=== PATIENT | male | born 1970 | race Caucasian/White ===

== ENCOUNTER 2019-11-23 20:05 | Emergency (ER) | payer OTHER, SELFPAY ==
[2019-11-23 20:08] VITALS: PULSE 83; RESP 16; TEMP 36.2; O2SAT 98; BMI 23.5
--- NOTE | 2019-11-23 20:13 | DI.RAD.S_ITS ---
PROCEDURE: XR FINGER LT MIN 2V INDICATIONS: swollen and pain TECHNIQUE: AP hand, 2 views of the 4th finger(s) acquired. COMPARISON: None. FINDINGS: Bones: There is a mildly displaced oblique fracture involving the proximal phalanx of the 4th finger. Mild intra-articular involvement can be seen. Soft tissues: No suspicious soft tissue calcifications. IMPRESSION: Fracture involving the proximal phalanx of the 4th finger, with mild intra-articular involvement. Dictated by: Julio Martin M.D. on 11/23/2019 at 20:44 Approved by: Julio Martin M.D. on 11/23/2019 at 20:45
--- NOTE | 2019-11-23 21:00 | ED.UPPEXIN ---
HPI - Extremity Injury (Upper) <RITCHIE Zendejas - Last Filed: 11/23/19 21:37> General Chief Complaint: Extremity Injury, Upper Stated Complaint: lt 4th finger injury Time Seen by Provider: 11/23/19 20:49 Source: patient Mode of arrival: Ambulatory Limitations: no limitations History of Present Illness HPI narrative: This is a 49-year-old male, nonsmoker, who presents to ED with left 4th proximal finger discomfort that he injured during work. 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 Patient reports pain is 8/10 and painful with movement such as flexing and extending of affected finger. Right dominant hand. Patient reports difficult to bending PIP. Patient reports intact sensation distal and proximal to the injury site. Patient denies any open skin from injury. Related Data Allergies Allergy/AdvReac Type Severity Reaction Status Date / Time aspirin Allergy Severe Hives Verified 11/23/19 20:12 Review of Systems <RITCHIE Zendejas - Last Filed: 11/23/19 21:37> Review of Systems Narrative: General: Denies fever, chills, fatigue, malaise, sweats. Respiratory: Denies dyspnea, cough, wheezing, hemoptysis, sputum. Cardiovascular: Denies chest pain, palpitations, orthopnea, edema. Musculoskeletal: See HPI Skin: Denies rash, skin lesions, or other. Neurologic: Denies weakness, headache, numbness, change in speech, confusion, seizures, incoordination. Psychiatric: No concerning psychosocial issues. Patient History <RITCHIE Zendejas - Last Filed: 11/23/19 21:37> Medical History No significant past medical history (Acute) Surgical History No pertinent past surgical history (Acute) Social History Smoking Status: Never smoker Smoking Status: Never smoker alcohol intake frequency: holidays/special occasions only Substance Use Type: does not use Exam <RITCHIE Zendejas - Last Filed: 11/23/19 21:37> Narrative Exam Narrative: General appearance: well developed, well nourished, in no acute distress. Head: normocephalic, atraumatic, no scalp lesions, non-tender. ENT: Hearing grossly intact. Nose without bleeding, purulent discharge, septal hematoma or deviation. Mucous membrane moist, no mucosal lesion. Throat without erythema, tonsillar hypertrophy or exudate. Uvula in midline, airway patent. Neck/Thyroid: neck supple, full range of motion, no visible masses or meningeal signs. No JVD, non-tender without lymphadenopathy. Skin: no suspicious rashes, lesions over visible areas. Warm and dry and appropriate color for ethnicity. Heart: no clubbing, no cyanosis, no edema. Lungs: Breathing even and unlabored. No stridor. No accessory muscles used. Able to speak in full sentences. Chest: normal shape and expansion. Abdomen: non-obese, non-distended. Neurologic: alert and oriented. 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 Psych: good eye contact, normal affect. Initial Vital Signs Initial Vital Signs: Vital Signs Temperature 97.1 F L 11/23/19 20:08 Pulse Rate 83 11/23/19 20:08 Respiratory Rate 16 11/23/19 20:08 Pulse Oximetry 98 11/23/19 20:08 Extrem Left upper extremity: hand Details: abnormal to inspection, normal capillary refill, neuromotor exam abnormal, neurosensory exam normal, tenderness, vascular exam Details: radial pulse present, abnormal ROM of finger Details: pain with active ROM, pain with passive ROM and unable to flex or extend (except very mild, c/o pain) Location: of the 4th digit, swelling Location: of the 4th digit Location: at the proximal phalanx and at the PIP joint and ecchymosis Location: of the 4th digit Location: at the proximal phalanx and on the dorsal aspect; no abrasions and no lacerations <Jaspal Dangelo MD - Last Filed: 11/24/19 06:51> Initial Vital Signs Initial Vital Signs: Vital Signs Temperature 97.1 F L 11/23/19 20:08 Pulse Rate 83 11/23/19 20:08 Respiratory Rate 16 11/23/19 20:08 Pulse Oximetry 98 11/23/19 20:08 Scores <Sagar BarahonaRITCHIE armenta - Last Filed: 11/23/19 21:37> GCS Denisa coma scale eye opening: Spontaneous Denisa coma scale verbal response: Orientated [place] coma scale motor response: Obey commands [place] coma scale total score: 15 Course <Sagar BarahonaRITCHIE armenta - Last Filed: 11/23/19 21:37> Orders Ordered: Discontinued Medications Acetaminophen (Tylenol) 975 mg PO NOW ONE Stop: 11/23/19 21:02 Last Admin: 11/23/19 21:23 Dose: 975 mg [facility] V[facility] Signs Vital signs: Vital Signs - 8 hr 11/23/19 20:08 Temperature 97.1 F L Pulse Rate 83 Respiratory Rate 16 Pulse Oximetry 98 <Jaspal Dangelo MD - Last Filed: 11/24/19 06:51> Orders Ordered: Discontinued Medications Acetaminophen (Tylenol) 975 mg PO NOW ONE Stop: 11/23/19 21:02 Last Admin: 11/23/19 21:23 Dose: 975 mg Documented by: NITISH Vital Signs Vital signs: Vital Signs - 8 hr 11/23/19 20:08 Temperature 97.1 F L Pulse Rate 83 Respiratory Rate 16 Pulse Oximetry 98 MDM - Extremity Injury (Upper) <Sagar BarahonaRITCHIE armenta - Last Filed: 11/23/19 21:37> Differential Diagnosis Differential diagnosis: Likely finger sprain and other (Finger fracture) Medical Records Attestation: I reviewed the patient's medical records. Imaging Data XR-Finger LT: Radiologist's Impression: [address] [address] XRay Report Signed Patient: Bernadette Toribio PMR#: [id number] : 1970Acct:[id number] Age/Sex: 49 / MDate of Service: 11/23/19 Loc: ED Accession Number: [id number] Procedure: XR finger LT min 2V Ordering Provider: Bj Curtis D.O. PROCEDURE: XR FINGER LT MIN 2V INDICATIONS: swollen and pain TECHNIQUE: AP hand, 2 views of the 4th finger(s) acquired. COMPARISON: None. FINDINGS: Bones: There is a mildly displaced oblique fracture involving the proximal phalanx of the 4th finger. Mild intra-articular involvement can be seen. Soft tissues: No suspicious soft tissue calcifications. IMPRESSION: Fracture involving the proximal phalanx of the 4th finger, with mild intra-articular involvement. Dictated by: Julio Martin M.D. on 11/23/2019 at 20:44 Approved by: Julio Martin M.D. on 11/23/2019 at 20:45 MDM Narrative Medical decision making narrative: This is 49-year-old male right dominant hand presents to ED with maximum pain on the left 4th proximal phalanx pain with limited range of motion on the 4th finger with flexion and extension against resistance. There is moderate swelling and mild ecchymosis on affected site. Finger x-ray shows fracture involving the proximal phalanx of the 4th finger with mild intra-articular involvement. Affected finger was splinted with orthoglass material and advised RICE therapy and patient verbalized understanding. Patient was medicated with Tylenol due to history of aspirin and patient is hesitant to take NSAIDS. L&I document completed and work off note provided. Discharge Plan Departure Patient Disposition: Home Clinical Impression: Closed fracture of proximal phalanx of finger of left hand Discharge Date/Time: 11/23/19 21:33 Instructions: DI for Finger Fracture Activity Restrictions/Additional Instructions: You have been diagnosed with [closed mildly displaced oblique fracture involving the proximal balance of the 4th finger in left hand mildly involving the joint]. What to do: *Take your medications as directed. Please take [id number] Tylenol 650-1000 mg up to 4 times a day as needed. You can take [id number] ibuprofen if you elect to up to 400 mg to 600 mg 3 times a day with food. *Follow up with your primary care provider in 2-3 days, call for an appointment. I have included [facility] clinic information for PCP for Dr. De Oliveira. Let them know you were seen in the ED and that we asked you to be seen in follow up. *Return to ED if you have any new, worsening, or concerning symptoms, such as [severe pain, tingling/numbness/weakness to affected finger or hand, chest pain, breathing difficulty, unable to tolerate fluids or any acute concerns]. Referrals: [facility] [Provider Group] [facility] [Provider Group] Stand Alone Forms: Work Release Note
[2019-11-23] MEDS: ACETAMINOPHEN 325 MG TABLET 975 MG PO (21:23)
== END 2019-11-23 21:33 | disposition home or self-care (01) ==
PROVIDERS: Emergency Provider Nurse Practitioner Family
DX: S62.615A Displaced fracture of proximal phalanx of left ring finger, initial encounter for closed fracture (principal); X50.0XXA Overexertion from strenuous movement or load, initial encounter; Y99.0 Civilian activity done for income or pay
CPT/HCPCS: 73140; 99283

== ENCOUNTER → 2020-08-05 07:55 | Outpatient (CLI) | payer BC, SELFPAY ==
[2020-08-05 09:02] LABS: Add Manual Diff / Slide Review NO; Basophils Absolute Auto 0 /uL (0-100); Basophils Percent Auto 0.8 % (0-2); Eosinophils Absolute Auto 200 /uL (0-450); Eosinophils Percent Auto 3.5 % (2-4); Hematocrit 41.1 % (41-53); Lymphocytes Absolute Auto 2300 /uL (1100-4500); Lymphocytes Percent Auto 49.7 % (25-40); Mean Corpuscular HGB Conc 34.1 % (30-36); Mean Corpuscular Hemoglobin 29.7 PG (26-34); Mean Corpuscular Volume 87.1 fL (80-100); Monocytes Absolute Auto 300 /uL (0-900); Monocytes Percent Auto 7.1 % (3-14); Neutrophils Absolute Auto 1800 /uL (1500-7000); Neutrophils Percent Auto 38.9 % (50-75); Platelet Count 191 X10^3/uL (150-400); Red Blood Cell Count 4.72 X10^6/uL (4.5-5.9); White Blood Cell Count 4.7 X10^3/uL (4.5-11.0)
[2020-08-05 09:11] LABS: Alanine Aminotransferase 16 IU/L (<50); Albumin 4.1 g/dL (3.5-5.0); Albumin Globulin Ratio 1.4 (1.0-2.8); Alkaline Phosphatase 61 U/L (38-126); Aspartate Aminotransferase 27 IU/L (17-59); BUN Creatinine Ratio 15.5 (6-22); Bilirubin Total 0.9 mg/dL (0.2-1.3); Blood Urea Nitrogen 11 mg/dL (9-20); Carbon Dioxide 31 mmol/L (22-32); Chloride 103 mmol/L (98-107); Cholesterol 133 mg/dL (140-199); Estimated Glomerular Filt Rate > 60.0 mL/min (>60); Globulin 2.9 g/dL (1.7-4.1); Glucose 87 mg/dL (70-100); HDL Cholesterol 52 mg/dL (40-60); HEMOLYSIS < 15 (0-50); LDL Cholesterol Calculated 71 mg/dL (<100); Potassium 4.4 mmol/L (3.4-5.1); Sodium 138 mmol/L (137-145); Triglycerides 51 mg/dL (35-150)
[2020-08-05 09:12] LABS: Hemoglobin A1C% w Est Avg Glu 5.3 % (4.0-6.0)
== END ==
PROVIDERS: PCP Family Medicine; Referring Provider Family Medicine; Visit Provider Family Medicine
DX: Z00.00 Encounter for general adult medical examination without abnormal findings (principal); Z80.9 Family history of malignant neoplasm, unspecified
CPT/HCPCS: 36415; 80053; 80061; 83036; 85025

== ENCOUNTER 2020-09-30 13:36 | Emergency (ER) | payer BC, SELFPAY ==
[2020-09-30] VITALS (8 sets, daily range): BP systolic 111–124; BP diastolic 72–78; PULSE 63–87; RESP 15–26; TEMP 36.4; O2SAT 95–99; BMI 25.0
--- NOTE | 2020-09-30 14:33 | ED_ITS ---
HPI - Arrhythmia/Palpitations <KARLIE Murray-BC - Last Filed: 09/30/20 19:46> General Chief Complaint: Arrhythmia/Palpitations Stated Complaint: elevated heart rate Time Seen by Provider: 09/30/20 13:57 Source: patient Mode of arrival: Ambulatory Limitations: no limitations History of Present Illness HPI narrative: The patient is a 50-year-old male nonsmoker who denies pertinent medical history presents with a chief complaint of a fast heart for the past 2 days. He states that his heart rate will jump up to 120 and then decreased very quickly, that there is no pattern to this. He states that he knows this because of his what, he does not take his pulse. He denies any chest pain shortness of breath lightheadedness or dizziness. He does note that this started after drinking a lot of coffee yesterday. He states that he ended a water fast for 5 days or he limits his food intake and that ended yesterday. He wonders if his electrolytes might be off related to this. The patient denies any chest pain shortness of breath, denies any lightheadedness or dizziness, any nausea vomiting or abdominal pain. He states that his pulse rate has gone above 100, which is not normal for him. He does note that he has done this water fasting diet several times with no complications. Related Data Home Medications Medication Instructions Recorded Confirmed No Known Home Medications 08/04/20 09/29/20 Allergies Allergy/AdvReac Type Severity Reaction Status Date / Time aspirin Allergy Severe Hives Verified 09/30/20 13:40 Review of Systems <ZACHARY Murray - Last Filed: 09/30/20 19:46> Review of Systems Narrative: GENERAL: Denies chills, fatigue, malaise, fever, sweats. HEENT: Denies sinus pain, ear pain, sore throat, difficulty swallowing, dizziness. RESPIRATORY: Denies dyspnea, cough, wheezing, hemoptysis, sputum. CARDIOVASCULAR: See HPI GASTROINTESTINAL: Denies nausea, vomiting, abdominal pain, diarrhea, constipation, melena. : Denies dysuria, frequency, incontinence, hematuria, urinary retention. MUSCULOSKELETAL: denies weakness, joint pain, or bony pain SKIN: Denies rash, skin lesions, or other NEUROLOGIC: Denies weakness, headache, numbness, change in speech, confusion, seizures, incoordination. PSYCHIATRIC: No concerning psychosocial issues. 12 point review of systems is negative except for those stated above Patient History <SHALOM Murray - Last Filed: 09/30/20 19:46> Medical History Family history of cancer No significant past medical history Preventative health care Surgical History No pertinent past surgical history Family History Father Cancer Social History Smoking Status: Former smoker Tobacco: How many years used: 10 quit status: has quit before alcohol intake: current (~2 drinks per week ) substance use type: does not use Smoking Status: Former smoker alcohol intake frequency: holidays/special occasions only Substance Use Type: does not use Exam <SHALOM Murray - Last Filed: 09/30/20 19:46> Narrative Exam Narrative: GENERAL: This is a well-nourished, well-developed patient, no acute distress HEAD: Atraumatic. Normocephalic. No temporal or scalp tenderness. EYES: Pupils equal round and reactive. Extraocular motions intact. No scleral icterus. No injection or drainage. ENT: Nose without bleeding, purulent drainage or septal hematoma. Wearing a mask. Airway patent. NECK: Trachea midline. No JVD or lymphadenopathy. Supple, nontender, no meningeal signs. CARDIOVASCULAR: Regular rate and rhythm RESPIRATORY: Clear to auscultation. Breath sounds equal bilaterally. No wheezes, rales, or rhonchi. No cough. No increased respiratory effort. Accessory muscle use. GASTROINTESTINAL: Abdomen soft, non-tender, nondistended. No hepato- splenomegaly, or palpable masses. No guarding. EXTREMITIES: No clubbing, cyanosis, or edema. No joint tenderness, effusion, or edema noted. BACK: Nontender without deformity or crepitance. No flank tenderness. NEURO: AOx3. SKIN: No rash or erythema on visible skin Initial Vital Signs Initial Vital Signs: Vital Signs Temperature 97.6 F 09/30/20 13:41 Pulse Rate 87 12/12/20 13:41 Respiratory Rate 18 09/30/20 13:41 Blood Pressure 116/78 09/30/20 13:41 Pulse Oximetry 99 09/30/20 13:41 <Lolly Hill MD - Last Filed: 10/01/20 07:37> Initial Vital Signs Initial Vital Signs: Vital Signs Temperature 97.6 F 09/30/20 13:41 Pulse Rate 87 09/30/20 13:41 Respiratory Rate 18 09/30/20 13:41 Blood Pressure 116/78 09/30/20 13:41 Pulse Oximetry 99 09/30/20 13:41 Scores <SHALOM Murray - Last Filed: 09/30/20 19:46> GCS Denisa coma scale eye opening: Spontaneous Denisa coma scale verbal response: Orientated Denisa coma scale motor response: Obey commands Denisa coma scale total score: 15 Course <SHALOM Murray - Last Filed: 09/30/20 19:46> Orders Ordered: ED Orders 09/30/20 13:50 Complete Blood Count AUTO DIFF Stat Comprehensive Metabolic Panel Stat Magnesium Stat Thyroid Stimulating Hormone Stat Troponin & CK Cardiac Panel Stat 09/30/20 13:57 EKG-12 Lead Stat Vital Signs Vital signs: Vital Signs - 8 hr 09/30/20 13:41 09/30/20 13:47 09/30/20 13:48 Temperature 97.6 F Pulse Rate 87 87 84 Respiratory Rate 18 20 26 H Blood Pressure 116/78 124/78 Pulse Oximetry 99 95 97 09/30/20 14:00 09/30/20 14:30 09/30/20 15:00 Temperature Pulse Rate 81 71 68 Respiratory Rate 16 15 Blood Pressure 122/75 118/74 121/75 Pulse Oximetry 97 97 97 09/30/20 15:30 09/30/20 16:00 Temperature Pulse Rate 64 63 Respiratory Rate 17 17 Blood Pressure 118/72 111/72 Pulse Oximetry 97 98 <Lolly Hill MD - Last Filed: 10/01/20 07:37> Orders Ordered: ED Orders 09/30/20 13:50 Complete Blood Count AUTO DIFF Stat Comprehensive Metabolic Panel Stat Magnesium Stat Thyroid Stimulating Hormone Stat Troponin & CK Cardiac Panel Stat 09/30/20 13:57 EKG-12 Lead Stat Vital Signs Vital signs: Vital Signs - 8 hr 09/30/20 13:41 09/30/20 13:47 09/30/20 13:48 Temperature 97.6 F Pulse Rate 87 87 84 Respiratory Rate 18 20 26 H Blood Pressure 116/78 124/78 Pulse Oximetry 99 95 97 09/30/20 14:00 09/30/20 14:30 09/30/20 15:00 Temperature Pulse Rate 81 71 68 Respiratory Rate 16 15 Blood Pressure 122/75 118/74 121/75 Pulse Oximetry 97 97 97 09/30/20 15:30 09/30/20 16:00 Temperature Pulse Rate 64 63 Respiratory Rate 17 17 Blood Pressure 118/72 111/72 Pulse Oximetry 97 98 MDM - Arrhythmia/Palpitations <KARLIE Murray- - Last Filed: 09/30/20 19:46> Lab Data Result diagrams: 09/30/20 13:50 09/30/20 13:50 Labs: Lab Results 09/30/20 09/30/20 09/30/20 Range/Units 13:50 13:50 13:50 WBC 7.8 (4.5-11.0) X10^3/uL RBC 5.00 (4.5-5.9) X10^6/uL Hgb 14.9 (13.5-17.5) g/dL Hct 43.4 (41-53) % MCV 86.7 (80-100) fL MCH 29.7 (26-34) PG MCHC 34.3 (30-36) % RDW 12.7 (11.6-14.8) % Plt Count 208 (150-400) X10^3/uL Neut % (Auto) 55.6 (50-75) % Lymph % (Auto) 35.7 (25-40) % [place] % (Auto) 6.3 (3-14) % Eos % (Auto) 1.9 L (2-4) % Baso % (Auto) 0.5 (0-2) % Neut # (Auto) 4300 (3083-2635) /uL Lymph # (Auto) 2800 (4803-1882) /uL [place] # (Auto) 500 (0-900) /uL Eos # (Auto) 100 (0-450) /uL Baso # (Auto) 0 (0-100) /uL Sodium 140 (137-145) mmol/L Potassium 3.9 (3.4-5.1) mmol/L Chloride 103 (98-107) mmol/L Carbon Dioxide 33 H (22-32) mmol/L BUN 12 (9-20) mg/dL Creatinine 0.68 (0.66-1.25) mg/dL Estimated GFR > 60.0 (>60) mL/min BUN/Creatinine Ratio 17.6 (6-22) Glucose 128 H (70-100) mg/dL Calcium 8.9 (8.4-10.2) mg/dL Magnesium 2.2 (1.6-2.3) mg/dL Total Bilirubin 0.5 (0.2-1.3) mg/dL AST 35 (17-59) IU/L ALT 23 (<50) IU/L Alkaline Phosphatase 70 (38-126) U/L Total Creatine Kinase 159 (55-170) U/L CK-MB (CK-2) 0.81 (<2.37) ng/mL CK-MB (CK-2) Rel Index 0.5 L (1.5-5.0) % Troponin I < 0.012 (0.01-0.034) ng/mL Total Protein 7.5 (6.3-8.2) g/dL Albumin 4.3 (3.5-5.0) g/dL Globulin 3.2 (1.7-4.1) g/dL Albumin/Globulin Ratio 1.3 (1.0-2.8) TSH 1.72 (0.47-4.68) uIU/mL ECG Data Attestation: I personally reviewed and interpreted this ECG as follows: Interpretation: Normal sinus rhythm. Ventricular rate 75. P.r. interval 152. QRS 82. viewed by Dr Sergio RILEY Narrative Medical decision making narrative: The patient is a 50-year-old male who presents with a chief complaint of palpitations and elevated heart rate above 100, which she states is abnormal for him. He denies any chest pain lightheadedness shortness of breath or associated symptoms. EKG has no acute findings. However the patient just completed a 5 day water fast, raising possibility for electrolyte imbalance, so basic labs were obtained. Labs were within normal limits. The patient was monitored 2.5 hours during his emergency department stay, had no evidence of tachycardia or arrhythmia. Encouraged follow-up with primary care provider in the next few days for follow-up. Discussed the possibility of a Holter monitor if deemed necessary. Discussed that establishing heart rate slowly off of watch is not always accurate, avoiding caffeine etcetera. Discussed coming back to the ER for acute concerns such as chest pain, shortness of breath, concern of heart attack or stroke. Patient was hemodynamically stable throughout stay in the ER. Has no questions or concerns upon discharge and states understanding return precautions as well as follow-up. <Lolly Hill MD - Last Filed: 10/01/20 07:37> Lab Data Labs: Lab Results 09/30/20 09/30/20 09/30/20 Range/Units 13:50 13:50 13:50 WBC 7.8 (4.5-11.0) X10^3/uL RBC 5.00 (4.5-5.9) X10^6/uL Hgb 14.9 (13.5-17.5) g/dL Hct 43.4 (41-53) % MCV 86.7 (80-100) fL MCH 29.7 (26-34) PG MCHC 34.3 (30-36) % RDW 12.7 (11.6-14.8) % Plt Count 208 (150-400) X10^3/uL Neut % (Auto) 55.6 (50-75) % Lymph % (Auto) 35.7 (25-40) % [place] % (Auto) 6.3 (3-14) % Eos % (Auto) 1.9 L (2-4) % Baso % (Auto) 0.5 (0-2) % Neut # (Auto) 4300 (5476-7098) /uL Lymph # (Auto) 2800 (8530-2805) /uL [place] # (Auto) 500 (0-900) /uL Eos # (Auto) 100 (0-450) /uL Baso # (Auto) 0 (0-100) /uL Sodium 140 (137-145) mmol/L Potassium 3.9 (3.4-5.1) mmol/L Chloride 103 (98-107) mmol/L Carbon Dioxide 33 H (22-32) mmol/L BUN 12 (9-20) mg/dL Creatinine 0.68 (0.66-1.25) mg/dL Estimated GFR > 60.0 (>60) mL/min BUN/Creatinine Ratio 17.6 (6-22) Glucose 128 H (70-100) mg/dL Calcium 8.9 (8.4-10.2) mg/dL Magnesium 2.2 (1.6-2.3) mg/dL Total Bilirubin 0.5 (0.2-1.3) mg/dL AST 35 (17-59) IU/L ALT 23 (<50) IU/L Alkaline Phosphatase 70 (38-126) U/L Total Creatine Kinase 159 (55-170) U/L CK-MB (CK-2) 0.81 (<2.37) ng/mL CK-MB (CK-2) Rel Index 0.5 L (1.5-5.0) % Troponin I < 0.012 (0.01-0.034) ng/mL Total Protein 7.5 (6.3-8.2) g/dL Albumin 4.3 (3.5-5.0) g/dL Globulin 3.2 (1.7-4.1) g/dL Albumin/Globulin Ratio 1.3 (1.0-2.8) TSH 1.72 (0.47-4.68) uIU/mL Discharge Plan Departure Patient Disposition: Home Clinical Impression: Palpitations Instructions: DI for Arrhythmias, DI for Palpitations Activity Restrictions/Additional Instructions: Thank you for trusting us with your care today. As discussed, your lab work resulted well. Your EKG looks good and your heart rhythm has been within normal limits during your stay in the emergency department. There is no current evidence of palpitations, arrhythmia, or high heart rate Please follow-up with primary care provider in the next 48-72 hours. As discussed, please come back to the emergency department for any acute concerns this includes concern of heart attack or stroke Prescriptions: No Action No Known Home Medications RF: 0 Referrals: Mumtaz Bowser, [Primary Care Provider] - <Lolly Hill MD - Last Filed: 10/01/20 07:37> Cosign ED Attending Eleonora Attestation: I was immediately available in the department for consultation throughout this patient's visit. I agree with documentation as above. Lolly Hill MD
[2020-09-30 14:43] LABS: Add Manual Diff / Slide Review NO; Basophils Absolute Auto 0 /uL (0-100); Basophils Percent Auto 0.5 % (0-2); Eosinophils Absolute Auto 100 /uL (0-450); Eosinophils Percent Auto 1.9 % (2-4); Hematocrit 43.4 % (41-53); Hemoglobin 14.9 g/dL (13.5-17.5); Lymphocytes Absolute Auto 2800 /uL (1100-4500); Lymphocytes Percent Auto 35.7 % (25-40); Mean Corpuscular HGB Conc 34.3 % (30-36); Mean Corpuscular Hemoglobin 29.7 PG (26-34); Mean Corpuscular Volume 86.7 fL (80-100); Monocytes Absolute Auto 500 /uL (0-900); Monocytes Percent Auto 6.3 % (3-14); Neutrophils Absolute Auto 4300 /uL (1500-7000); Neutrophils Percent Auto 55.6 % (50-75); Platelet Count 208 X10^3/uL (150-400); Red Cell Distribution Width 12.7 % (11.6-14.8); White Blood Cell Count 7.8 X10^3/uL (4.5-11.0)
[2020-09-30 14:57] LABS: Alanine Aminotransferase 23 IU/L (<50); Albumin 4.3 g/dL (3.5-5.0); Albumin Globulin Ratio 1.3 (1.0-2.8); Alkaline Phosphatase 70 U/L (38-126); Aspartate Aminotransferase 35 IU/L (17-59); BUN Creatinine Ratio 17.6 (6-22); Bilirubin Total 0.5 mg/dL (0.2-1.3); Blood Urea Nitrogen 12 mg/dL (9-20); Calcium 8.9 mg/dL (8.4-10.2); Carbon Dioxide 33 mmol/L (22-32); Chloride 103 mmol/L (98-107); Creatine Kinase 159 U/L (55-170); Estimated Glomerular Filt Rate > 60.0 mL/min (>60); Globulin 3.2 g/dL (1.7-4.1); Glucose 128 mg/dL (70-100); Magnesium 2.2 mg/dL (1.6-2.3); Potassium 3.9 mmol/L (3.4-5.1); Sodium 140 mmol/L (137-145); Total Protein 7.5 g/dL (6.3-8.2)
[2020-09-30 15:08] LABS: Troponin I < 0.012 ng/mL (0.01-0.034)
[2020-09-30 15:12] LABS: CKMB % Relative Index 0.5 % (1.5-5.0); Creatine Kinase MB 0.81 ng/mL (<2.37); HEMOLYSIS 22 (0-50)
[2020-09-30 16:04] LABS: Thyroid Stimulating Hormone 1.72 uIU/mL (0.47-4.68)
== END 2020-09-30 16:21 | disposition home or self-care (01) ==
PROVIDERS: Emergency Provider Nurse Practitioner Family; PCP Family Medicine
DX: R00.2 Palpitations (principal)
CPT/HCPCS: 36415; 80053; 82550; 82553; 83735; 84443; 84484; 85025; 93005; 93010; 99283; 99284

== ENCOUNTER 2020-12-16 18:28 | Emergency (ER) | payer BC, SELFPAY ==
[2020-12-16 18:50] VITALS: BP 125/61; PULSE 60; RESP 14; TEMP 36.8; O2SAT 99; BMI 25.0
--- NOTE | 2020-12-16 19:11 | DI.RAD.S_ITS ---
PROCEDURE: XR ANKLE RT MIN 3V INDICATIONS: ankle pain after running rolled it. TECHNIQUE: 3 views of the ankle were acquired. COMPARISON: None. FINDINGS: Bones: Nondisplaced lateral malleolar spiral fracture. No dislocations. Ankle mortise is normally aligned. No suspicious bony lesions. Soft tissues: Small tibiotalar joint effusion. Achilles tendon appears normal. Soft tissue swelling over the lateral malleolus. IMPRESSION: Nondisplaced lateral malleolar fracture. Dictated by: Kyle Cuellar M.D. on 12/16/2020 at 19:42 Approved by: Kyle Cuellar M.D. on 12/16/2020 at 19:44
[2020-12-16 19:16] VITALS: PULSE 60
--- NOTE | 2020-12-16 20:23 | ED.LOWEXIN ---
HPI - Extremity Injury (Lower) General Chief Complaint: Extremity Injury, Lower Stated Complaint: states rolled his right ankle running Time Seen by Provider: 12/16/20 20:07 Source: patient Mode of arrival: Ambulatory Limitations: no limitations History of Present Illness HPI Narrative: Patient is a 50-year-old male who presents with right ankle pain. He states that he was running this morning when he twist in the it rolled on pavement. He initially was not ambulatory but later in the day is ambulatory has significant pain over the lateral malleoli. No numbness or tingling. complaint: ankle injury Onset (ago): hour(s) Related Data Home Medications Medication Instructions Recorded Confirmed No Known Home Medications 08/04/20 12/08/20 Allergies Allergy/AdvReac Type Severity Reaction Status Date / Time aspirin Allergy Severe Hives Verified 12/08/20 08:27 Review of Systems Review of Systems Narrative: GENERAL: Denies chills,fever HEENT: Denies throat pain RESPIRATORY: Denies dyspnea, cough, wheezing CARDIOVASCULAR: Denies chest pain, palpitations GASTROINTESTINAL: Denies nausea, vomiting MUSCULOSKELETAL: See HPI SKIN: No rash, no laceration, no pruritus NEUROLOGIC: Denies weakness, dizziness, headache, numbness 8 point review of systems is negative except for those stated above and HPI Patient History Medical History Family history of cancer No significant past medical history Preventative health care Surgical History No pertinent past surgical history Family History Father Cancer Social History Smoking Status: Former smoker Tobacco: How many years used: 10 quit status: has quit before alcohol intake: current (~2 drinks per week ) substance use type: does not use Smoking Status: Former smoker alcohol intake frequency: holidays/special occasions only Substance Use Type: does not use Exam Initial Vital Signs Initial Vital Signs: Vital Signs Temperature 98.2 F 12/16/20 18:50 Pulse Rate 60 12/16/20 18:50 Respiratory Rate 14 12/16/20 18:50 Blood Pressure 125/61 12/16/20 18:50 Pulse Oximetry 99 12/16/20 18:50 GENERAL: Well-appearing, well-nourished and in no acute distress. CARDIOVASCULAR: peripheral pulses in tact, cap refill <2 sec RESPIRATORY: No respiratory distress, speaks in full sentences without difficulty EXTREMITIES: Normal range of motion, no clubbing or edema. Neurovascularly intact NEUROLOGICAL: Cranial nerves II through XII grossly intact. Normal gait and speech. SKIN: Warm, dry, no petechiae, no rashes or lesions. Procedures Orthopedic Splinting/Casting Injury #1: Side: right Lower Extremity Injury Location: ankle Lower Extremity Immobilizer: boot orthosis Other Orthopedic Equipment: crutches Post splinting neuro exam: intact Post splinting vascular exam: intact Placed by: Nursing Course Orders Ordered: ED Orders 12/16/20 19:11 XR ankle RT min 3V Stat Vital Signs Vital signs: Vital Signs - 8 hr 12/16/20 18:50 12/16/20 19:16 12/16/20 20:35 Temperature 98.2 F Pulse Rate 60 70 Pulse Rate [Right Dorsalis Pedis] 60 Respiratory Rate 14 16 Blood Pressure 125/61 118/78 Pulse Oximetry 99 99 MDM - Extremity Injury (Lower) Imaging Data Extremity x-ray #1: Radiologist's Impression: PROCEDURE: XR ANKLE RT MIN 3V INDICATIONS: ankle pain after running rolled it. TECHNIQUE: 3 views of the ankle were acquired. COMPARISON: None. FINDINGS: Bones: Nondisplaced lateral malleolar spiral fracture. No dislocations. Ankle mortise is normally aligned. No suspicious bony lesions. Soft tissues: Small tibiotalar joint effusion. Achilles tendon appears normal. Soft tissue swelling over the lateral malleolus. IMPRESSION: Nondisplaced lateral malleolar fracture. Dictated by: Kyle Cuellar M.D. on 12/16/2020 at 19:42 Discharge Plan Departure Patient Disposition: Home Clinical Impression: Closed fracture of right distal fibula Qualifiers: Encounter type: initial encounter Fracture morphology: other fracture Qualified Code(s): S82.831A - Other fracture of upper and lower end of right fibula, initial encounter for closed fracture Instructions: Ankle Fracture Activity Restrictions/Additional Instructions: *You have been diagnosed with right distal fibular fracture *What to do: Wear boot at all times. May increase weight-bearing as tolerated. Use crutches as needed. *Continue to take medications as directed Tylenol 1000 mg every 6 hours if needed for [id number] pain *Follow up with your primary care provider in 2-3 days Call orthopedics thing Friday morning to schedule follow-up appointment *Return to ER if you should have increasing pain swelling, numbness or tingling or any new, worsening or concerning symptoms Prescriptions: No Action No Known Home Medications RF: 0 Referrals: [facility] [Provider Group] Mumtaz Bowser DO [Primary Care Provider] - Stand Alone Forms: Work Release Note
[2020-12-16 20:35] VITALS: BP 118/78; PULSE 70; RESP 16; O2SAT 99
== END 2020-12-16 20:57 | disposition home or self-care (01) ==
PROVIDERS: Emergency Provider Emergency Medicine; PCP Family Medicine
DX: S82.831A Other fracture of upper and lower end of right fibula, initial encounter for closed fracture (principal); X50.1XXA Overexertion from prolonged static or awkward postures, initial encounter
CPT/HCPCS: 73610; 99283

== ENCOUNTER → 2021-08-29 08:54 | Outpatient (CLI) | payer BC, SELFPAY ==
[2021-08-29 09:49] LABS: Add Manual Diff / Slide Review NO; Basophils Absolute Auto 0 /uL (0-100); Basophils Percent Auto 0.5 % (0-2); Eosinophils Absolute Auto 100 /uL (0-450); Eosinophils Percent Auto 1.6 % (2-4); Hematocrit 43.7 % (41-53); Hemoglobin 14.7 g/dL (13.5-17.5); Lymphocytes Absolute Auto 2100 /uL (1100-4500); Lymphocytes Percent Auto 41.7 % (25-40); Mean Corpuscular HGB Conc 33.6 % (30-36); Mean Corpuscular Hemoglobin 29.1 PG (26-34); Mean Corpuscular Volume 86.6 fL (80-100); Monocytes Absolute Auto 300 /uL (0-900); Monocytes Percent Auto 6.8 % (3-14); Neutrophils Absolute Auto 2400 /uL (1500-7000); Neutrophils Percent Auto 49.4 % (50-75); Platelet Count 202 X10^3/uL (150-400); Red Blood Cell Count 5.05 X10^6/uL (4.5-5.9); White Blood Cell Count 4.9 X10^3/uL (4.5-11.0)
[2021-08-29 10:26] LABS: Alanine Aminotransferase 20 IU/L (<50); Albumin 4.5 g/dL (3.5-5.0); Albumin Globulin Ratio 1.7 (1.0-2.8); Alkaline Phosphatase 71 U/L (38-126); Aspartate Aminotransferase 31 IU/L (17-59); BUN Creatinine Ratio 14.1 (6-22); Bilirubin Total 1.1 mg/dL (0.2-1.3); Blood Urea Nitrogen 10 mg/dL (9-20); Calcium 9.5 mg/dL (8.4-10.2); Carbon Dioxide 29 mmol/L (22-32); Chloride 99 mmol/L (98-107); Cholesterol 146 mg/dL (140-199); Estimated Glomerular Filt Rate > 60.0 mL/min (>60); Globulin 2.6 g/dL (1.7-4.1); Glucose 91 mg/dL (70-100); HDL Cholesterol 48 mg/dL (40-60); HEMOLYSIS < 15 (0-50); LDL Cholesterol Calculated 79 mg/dL (<100); Potassium 4.8 mmol/L (3.4-5.1); Sodium 138 mmol/L (137-145); Total Protein 7.1 g/dL (6.3-8.2); Triglycerides 93 mg/dL (35-150)
[2021-08-29 10:56] LABS: Prostate Specific Antigen Scrn 1.03 ng/mL (0.1-4.0)
== END ==
PROVIDERS: PCP Family Medicine; Referring Provider Family Medicine; Visit Provider Family Medicine
DX: Z00.00 Encounter for general adult medical examination without abnormal findings (principal); Z12.5 Encounter for screening for malignant neoplasm of prostate
CPT/HCPCS: 36415; 80053; 80061; 85025; G0103

== ENCOUNTER → 2021-09-07 08:36 | Outpatient (CLI) | payer BC, SELFPAY ==
[2021-09-10 10:42] LABS: Fecal Immunochemical Test Negative (Negative)
== END ==
PROVIDERS: PCP Family Medicine; Referring Provider Family Medicine; Visit Provider Family Medicine
DX: Z00.00 Encounter for general adult medical examination without abnormal findings (principal)
CPT/HCPCS: 82274

== ENCOUNTER → 2022-08-23 06:58 | Outpatient (CLI) | payer BC, SELFPAY ==
[2022-08-23 08:41] LABS: Add Manual Diff / Slide Review NO; Basophils Absolute Auto 0 /uL (0-100); Basophils Percent Auto 0.5 % (0-2); Eosinophils Absolute Auto 100 /uL (0-450); Eosinophils Percent Auto 2.9 % (2-4); Hematocrit 41.4 % (41-53); Hemoglobin 14.1 g/dL (13.5-17.5); Lymphocytes Absolute Auto 2200 /uL (1100-4500); Lymphocytes Percent Auto 44.8 % (25-40); Mean Corpuscular Hemoglobin 28.9 PG (26-34); Monocytes Absolute Auto 400 /uL (0-900); Monocytes Percent Auto 8.2 % (3-14); Neutrophils Absolute Auto 2100 /uL (1500-7000); Neutrophils Percent Auto 43.6 % (50-75); Platelet Count 223 X10^3/uL (150-400); Red Blood Cell Count 4.87 X10^6/uL (4.5-5.9); White Blood Cell Count 4.9 X10^3/uL (4.5-11.0)
[2022-08-23 08:51] LABS: Alanine Aminotransferase 28 IU/L (<50); Albumin 4.2 g/dL (3.5-5.0); Albumin Globulin Ratio 1.6 (1.0-2.8); Alkaline Phosphatase 82 U/L (38-126); Aspartate Aminotransferase 31 IU/L (17-59); BUN Creatinine Ratio 15.2 (6-22); Bilirubin Total 0.8 mg/dL (0.2-1.3); Blood Urea Nitrogen 10 mg/dL (9-20); Calcium 8.9 mg/dL (8.4-10.2); Carbon Dioxide 28 mmol/L (22-32); Chloride 100 mmol/L (98-107); Cholesterol 139 mg/dL (140-199); Estimated Glomerular Filt Rate > 60 mL/min (>60); Globulin 2.7 g/dL (1.7-4.1); Glucose 86 mg/dL (70-100); HDL Cholesterol 44 mg/dL (40-60); HEMOLYSIS < 15 (0-50); LDL Cholesterol Calculated 72 mg/dL (<100); Sodium 138 mmol/L (137-145); Total Protein 6.9 g/dL (6.3-8.2); Triglycerides 115 mg/dL (35-150)
== END ==
PROVIDERS: PCP Family Medicine; Referring Provider Family Medicine; Visit Provider Family Medicine
DX: Z00.00 Encounter for general adult medical examination without abnormal findings (principal); Z12.5 Encounter for screening for malignant neoplasm of prostate
CPT/HCPCS: 36415; 80053; 80061; 85025; G0103

== ENCOUNTER → 2022-10-30 09:42 | Outpatient (CLI) | payer BC, SELFPAY ==
[2022-10-30 11:30] LABS: COVID19 -Nasal RAPID Negative (Negative)
== END ==
PROVIDERS: PCP Family Medicine; Visit Provider Surgery
DX: Z01.812 Encounter for preprocedural laboratory examination (principal); Z20.822 Contact with and (suspected) exposure to COVID-19
CPT/HCPCS: 87635; C9803

== ENCOUNTER 2022-10-31 06:23 | Day surgery (SDC) | payer BC, SELFPAY ==
--- NOTE | 2022-10-31 | PATH_ITS ---
[facility] Accession Number: [id number] No. of containers..01 Tissue . 01 Material submitted: . cecum - CECAL POLYP X2 . 01 Diagnosis: Cecum, Polyp x2, Biopsies: Sessile serrated adenomas. NATALIIA 11/04/2022 1037 Local . 01 Electronically signed: . Raisa Sim MD, Pathologist NPI- [id number] . 01 Gross description: . CECAL POLYP X2: Received in formalin are 2 fragment(s) of nina, soft tissue measuring 0.8 x 0.3 x 0.1 cm to 0.5 x 0.2 x 0.2 cm submitted entirely in 1 cassette(s) /CPE 11/01/2022 0623 Local . 01 Pathologist provided ICD-10: D12.0 . 01 CPT . 136940 Specimen Comment: A courtesy copy of this report has been sent to [phone] Performed at: 01 [facility] [address] [place] [address] [address] [facility], [place], [place] [id number] MD Keny Munoz MD Phone: [phone]
[2022-10-31 07:19] VITALS: BP 111/71; PULSE 89; RESP 16; TEMP 36.9; O2SAT 98; BMI 25.0
[2022-10-31] MEDS: LACTATED RINGERS 1,000 ML 42 ML IV (07:43)
--- NOTE | 2022-10-31 07:44 | PM.HP.1 ---
History of Present Illness History of Present Illness Date Patient Seen: 10/31/22 Time Patient Seen: 07:45 Chief complaint: SCREENING COLONOSCOPY W/POSS BX Narrative: Bernadette is here for his colonoscopy. His anorectal discomfort has improved significantly since I last saw him. He has been incorporating lots of fiber into his diet. Patient History Medical History Family history of cancer Hematochezia No significant past medical history Preventative health care Well adult exam Surgical History No pertinent past surgical history Family & Social History Family History Father Cancer Social History: household members spouse Tobacco & Substance use: Tobacco type cigarettes Smoking Status Former smoker alcohol intake current alcohol intake frequency holiday/special occasion Substance Use Type does not use Meds Home Medications and Allergies Home Medications Medication Instructions Recorded Confirmed Type sodium,potassium,mag sulfates 17.5 See Rx Instructions PO .COMPLEX 10/25/22 Rx gram-3.13 gram-1.6 gram oral soln #354 mL (Suprep Bowel Prep Kit) Allergies Allergy/AdvReac Type Severity Reaction Status Date / Time aspirin Allergy Severe Hives, Verified 10/31/22 07:17 facial swelling Exam Vital Signs (past 8 hours): - 10/31/22 07:19 Temperature 98.5 F Pulse Rate 89 Respiratory Rate 16 Blood Pressure 111/71 Pulse Oximetry 98 Oxygen Delivery Method Room Air Oxygen Delivery Method Room Air Const General: healthy appearing and No acute distress Assessment & Plan Assessment and plan (1) Hematochezia: Status: Acute Plan We reviewed the risks and benefits of colonoscopy for colon cancer screening and he would like to proceed. Time Spent With Patient Critical Care time: I spent a total of [] minutes of critical care time on this patient's care today; this time is exclusive of procedural time.
[2022-10-31 08:15] VITALS: BP 118/75; PULSE 98; RESP 16; TEMP 36.7; O2SAT 96
--- NOTE | 2022-10-31 08:18 | PM.OP.COLON ---
Operative Date/Time/Diagnoses Date of procedure: 10/31/22 Time of procedure: 08:18 Pre-op diagnosis: Colon cancer screening Post-op diagnosis: same Procedure & Clinicians Study performed: Colonoscopy Same procedure as scheduled: Yes Surgeon: Santino Plunkett Procedure Notes Procedure in detail: Surgeon: Santino Plunkett MD Anesthesia: Salud Rodriguez CRNA Procedure: The patient was brought to the endoscopy suite, placed in left lateral decubitus position. The patient was connected to monitoring devices. A time-out was performed. Sedation was administered. Once the patient was adequately sedated, a digital rectal exam was performed and was normal. The scope was then inserted and advanced to the cecum where the appendiceal orifice was identified and photographed. The terminal ileum was intubated and a photograph was taken. No abnormality was noted in the terminal ileum. There were 2 small polyps each about 5 mm in the cecum and both were removed with a cold snare and sent together labeled ?cecal polyps?. The scope was then slowly withdrawn over greater than 6 minutes. The mucosa was thoroughly inspected. No other lesions were noted. The scope was retroflexed in the rectum. Some moderate internal hemorrhoids were noted. The scope was straightened and removed. The patient was awakened and brought to recovery. Scope withdrawal time: 11 minutes Sedation time: 17 minutes EBL: 2 mL Findings: 2 5 mm cecal polyps and moderate internal hemorrhoids Post-procedure Disposition: PACU
[2022-10-31 08:20] VITALS: BP 105/61; PULSE 84; RESP 16; O2SAT 99
[2022-10-31 08:24] VITALS: BP 101/70; PULSE 82; RESP 16; O2SAT 99
[2022-10-31 08:30] VITALS: BP 108/74; PULSE 78; RESP 16; TEMP 36.6; O2SAT 99
[2022-10-31 08:40] VITALS: BP 110/71; PULSE 79; RESP 16; TEMP 36.6; O2SAT 98
== END 2022-10-31 08:42 | disposition home or self-care (01) ==
PROVIDERS: PCP Family Medicine; Referring Provider Surgery; Visit Provider Surgery
PROC: 0DJD8ZZ Inspection of Lower Intestinal Tract, Via Natural or Artificial Opening Endoscopic (ICD-10-PCS; CPT 45378; principal; 2022-10-31 07:45)
DX: Z12.11 Encounter for screening for malignant neoplasm of colon (principal); K64.8 Other hemorrhoids; Z80.0 Family history of malignant neoplasm of digestive organs; D12.0 Benign neoplasm of cecum
CPT/HCPCS: 45385; J2704

== ENCOUNTER → 2022-12-16 18:08 | Outpatient (CLI) | payer BC, SELFPAY ==
[2022-12-16 19:06] LABS: Influenza A - CEPHEID Flu A NEGATIVE (NEGATIVE); Influenza B - CEPHEID Flu B NEGATIVE (NEGATIVE); Respiratory Syncytial Virus Negative (Negative)
[2022-12-16 19:07] LABS: COVID-19 CEPHEID 4-PLEX PCR Negative (Negative)
== END ==
PROVIDERS: PCP Family Medicine; Visit Provider Physician Assistant
DX: R50.9 Fever, unspecified (principal); R68.83 Chills (without fever)
CPT/HCPCS: 0241U

== ENCOUNTER → 2023-04-25 08:23 | Outpatient (CLI) | payer BC, SELFPAY ==
--- NOTE | 2023-04-25 08:25 | DI.RAD.S_ITS ---
PROCEDURE: XR CHEST 2V INDICATIONS: Wheezing TECHNIQUE: 2 views of the chest were acquired. COMPARISON: None. FINDINGS: Surgical changes and devices: None. Lungs and pleura: Lungs are clear. No pleural effusions or pneumothorax. Mediastinum: Mediastinal contours are normal. Heart size is normal. Bones and chest wall: No suspicious bony abnormalities. Soft tissues appear unremarkable. IMPRESSION: Normal two view chest x-ray Approved by: Jose Dickson M.D. on 04/25/2023 at 15:10
== END ==
PROVIDERS: PCP Family Medicine; Referring Provider Nurse Practitioner Family; Visit Provider Nurse Practitioner Family
DX: R06.2 Wheezing (principal)
CPT/HCPCS: 71046

== ENCOUNTER → 2023-08-23 07:43 | Outpatient (CLI) | payer BC, SELFPAY ==
[2023-08-23 09:01] LABS: Add Manual Diff / Slide Review NO; Basophils Absolute Auto 0 /uL (0-100); Basophils Percent Auto 0.6 % (0-2); Eosinophils Absolute Auto 100 /uL (0-450); Eosinophils Percent Auto 2.7 % (2-4); Hematocrit 41.9 % (41-53); Hemoglobin 14.3 g/dL (13.5-17.5); Lymphocytes Absolute Auto 2200 /uL (1100-4500); Lymphocytes Percent Auto 41.9 % (25-40); Mean Corpuscular HGB Conc 34.2 % (30-36); Mean Corpuscular Hemoglobin 29.5 PG (26-34); Mean Corpuscular Volume 86.3 fL (80-100); Monocytes Absolute Auto 400 /uL (0-900); Monocytes Percent Auto 7.8 % (3-14); Neutrophils Absolute Auto 2500 /uL (1500-7000); Platelet Count 202 X10^3/uL (150-400); Red Blood Cell Count 4.86 X10^6/uL (4.5-5.9); Red Cell Distribution Width 12.9 % (11.6-14.8); White Blood Cell Count 5.3 X10^3/uL (4.5-11.0)
[2023-08-23 09:08] LABS: Hemoglobin A1C% w Est Avg Glu 5.6 % (4.0-6.0)
[2023-08-23 09:24] LABS: Alanine Aminotransferase 29 IU/L (<50); Albumin 4.1 g/dL (3.5-5.0); Albumin Globulin Ratio 1.6 (1.0-2.8); Alkaline Phosphatase 73 U/L (38-126); Aspartate Aminotransferase 36 IU/L (17-59); BUN Creatinine Ratio 19.7 (6-22); Bilirubin Total 0.9 mg/dL (0.2-1.3); Blood Urea Nitrogen 14 mg/dL (9-20); Calcium 9.3 mg/dL (8.4-10.2); Carbon Dioxide 27 mmol/L (22-32); Chloride 102 mmol/L (98-107); Cholesterol 147 mg/dL (140-199); Estimated Glomerular Filt Rate > 60 mL/min (>60); Globulin 2.6 g/dL (1.7-4.1); Glucose 91 mg/dL (70-100); HDL Cholesterol 53 mg/dL (40-60); HEMOLYSIS < 15 (0-50); LDL Cholesterol Calculated 76 mg/dL (<100); Potassium 4.4 mmol/L (3.4-5.1); Sodium 137 mmol/L (137-145); Total Protein 6.7 g/dL (6.3-8.2); Triglycerides 88 mg/dL (35-150)
[2023-08-23 09:40] LABS: Vitamin D 25 Hydroxy (D3) 17.1 ng/mL (30.0-100.0)
[2023-08-23 09:50] LABS: Prostate Specific Antigen Scrn 1.35 ng/mL (0.1-4.0)
[2023-08-23 10:09] LABS: Vitamin B12 886 pg/mL (239-931)
== END ==
PROVIDERS: PCP Family Medicine; Referring Provider Family Medicine; Visit Provider Family Medicine
DX: Z13.220 Encounter for screening for lipoid disorders (principal); Z13.9 Encounter for screening, unspecified; Z12.5 Encounter for screening for malignant neoplasm of prostate; Z13.1 Encounter for screening for diabetes mellitus; Z13.21 Encounter for screening for nutritional disorder
CPT/HCPCS: 36415; 80053; 80061; 82306; 82607; 83036; 85025; G0103

== ENCOUNTER → 2023-11-08 07:43 | Outpatient (CLI) | payer BC, SELFPAY ==
[2023-11-08 10:06] LABS: Vitamin D 25 Hydroxy (D3) 50.6 ng/mL (30.0-100.0)
== END ==
LOC: LAB 07:45
PROVIDERS: PCP Family Medicine; Referring Provider Family Medicine; Visit Provider Family Medicine
DX: E55.9 Vitamin D deficiency, unspecified (principal)
CPT/HCPCS: 36415; 82306

== ENCOUNTER → 2023-11-29 07:41 | Outpatient (CLI) | payer BC, SELFPAY ==
[2023-11-30 05:11] LABS: x Labcorp Estim. Avg Glu (eAG) 117 mg/dL (.); x Labcorp Hemoglobin A1c 5.7 % (4.8-5.6)
== END ==
LOC: LAB 07:42
PROVIDERS: PCP Family Medicine; Referring Provider Family Medicine; Visit Provider Family Medicine
DX: R73.9 Hyperglycemia, unspecified (principal)
CPT/HCPCS: 36415; 83036

== ENCOUNTER → 2024-09-21 06:46 | Outpatient (CLI) | payer BC, SELFPAY ==
[2024-09-21 08:18] LABS: Alanine Aminotransferase 25 IU/L (<50); Albumin 4.1 g/dL (3.5-5.0); Albumin Globulin Ratio 1.6 (1.0-2.8); Alkaline Phosphatase 62 U/L (38-126); Aspartate Aminotransferase 33 IU/L (17-59); BUN Creatinine Ratio 21.6 (6-22); Bilirubin Total 0.8 mg/dL (0.2-1.3); Blood Urea Nitrogen 16 mg/dL (9-20); Carbon Dioxide 29 mmol/L (22-32); Chloride 104 mmol/L (98-107); Cholesterol 143 mg/dL (140-199); Estimated Glomerular Filt Rate > 60 mL/min (>60); Globulin 2.6 g/dL (1.7-4.1); Glucose 96 mg/dL (70-100); HDL Cholesterol 56 mg/dL (40-60); HEMOLYSIS < 15 (0-50); LDL Cholesterol Calculated 76 mg/dL (<100); Potassium 4.2 mmol/L (3.4-5.1); Sodium 136 mmol/L (137-145); Total Protein 6.7 g/dL (6.3-8.2); Triglycerides 53 mg/dL (35-150)
[2024-09-21 08:21] LABS: High Sensitivity CRP - Cardiac 1.4 mg/L (1.0-3.0)
[2024-09-21 08:54] LABS: Ferritin 55 ng/mL (18-464)
== END ==
PROVIDERS: PCP Family Medicine; Referring Provider Family Medicine; Visit Provider Family Medicine
DX: Z00.00 Encounter for general adult medical examination without abnormal findings (principal); Z78.9 Other specified health status
CPT/HCPCS: 36415; 80053; 80061; 82728; 86140